=== PATIENT | female | born 1950 | race Caucasian/White ===

== ENCOUNTER 2024-06-10 12:27 | Emergency (ER) | payer MEDICARE ==
[~2024-06-10] VITALS: Ht 157.5 cm; Wt 58.0 kg
[2024-06-10] VITALS (16 sets, daily range): BP systolic 123–151; BP diastolic 63–127
[2024-06-10] MEDS ORDERED: LEVOTHYROXIN125 MCG PO (12:40)
[2024-06-10] MEDS ORDERED: ELIQUIS5 MG PO (12:40)
[2024-06-10] MEDS ORDERED: IPRATROPIUM-Albuterol 0.5MG-2.5MG/3 ML NEB ONE (12:45)
[2024-06-10 13:35] LABS: BASO% 0.5 % (0-3); EOS% 6.2 % (0-8); HEMATOCRIT 35.6 % (37.0-47.0); HEMOGLOBIN 11.7 g/dl (12.0-16.0); IMMATURE GRANULOCYTES 0.2 % (0.0-5.0); LYMPH% 39.2 % (15-41); MEAN CELL VOLUME 94.7 fL CALC (80.0-100.0); MEAN CORPUSCULAR HGB 31.1 pG CALC (26.0-32.0); MEAN CORPUSCULAR HGB CONC 32.9 g/dL CAL (32.0-36.0); MONO% 6.9 % (2-13); NEUT# 2.73 thou/uL (2.00-7.15); RED BLOOD COUNT 3.76 mill/uL (4.20-5.60); RED CELL DISTRI WIDTH 14.1 % (11.5-15.5)
[2024-06-10 13:49] LABS: ALBUMIN 3.8 g/dL (3.2-5.0); ALKALINE PHOSPHATASE 77 u/l (38-126); ANION GAP 9 (6-22 (CALC)); BILIRUBIN, TOTAL 0.7 mg/dL (0.02-1.3); BUN 20 mg/dL (8-23); BUN/CREATININE RATIO 18 (12-20 (CALC)); CARBON DIOXIDE 21 mmol/l (22-30); CHLORIDE 114 mmol/l (95-108); CREATININE 1.1 mg/dL (0.5-1.0); ESTIMATED GFR 53 ML/MIN (>=90 (CALC)); POTASSIUM 4.3 mmol/l (3.5-5.1); SGOT/AST 34 u/l (9-36); SODIUM 140 mmol/l (137-146); TOTAL PROTEIN 6.9 g/dL (6.3-8.2)
[2024-06-10] MEDS ORDERED: AMOX/K CLAV875 M1 PO (16:01)
== END 2024-06-10 16:10 | disposition home or self-care (01) ==
LOC: ED 12:27
PROVIDERS: Clinical Nurse Specialist Emergency
DX: U07.1 COVID-19 (principal); J12.82 Pneumonia due to coronavirus disease 2019; J44.0 Chronic obstructive pulmonary disease with (acute) lower respiratory infection; I10 Essential (primary) hypertension; F17.200 Nicotine dependence, unspecified, uncomplicated

== ENCOUNTER 2024-06-12 13:58 | Observation (INO) | payer MEDICARE ==
[~2024-06-12] VITALS: Ht 157.5 cm; Wt 62.0 kg
[2024-06-12] VITALS (15 sets, daily range): BP systolic 144–218; BP diastolic 66–116
[~2024-06-12 13:58] MED LIST: AMOX/K CLAV875 M1 PO; ELIQUIS5 MG PO; LEVOTHYROXIN125 MCG PO
[2024-06-12] MEDS ORDERED: [UNRECOGNIZED DRUG - OTHER] PO (14:38)
[2024-06-12] MEDS ORDERED: AMLODIPINE PO (14:38)
[2024-06-12] MEDS ORDERED: CITALOPRAM40 MG PO (14:39)
[2024-06-12] MEDS ORDERED: VENLAFAXINE75 M2 PO (14:39)
[2024-06-12] MEDS ORDERED: VENTOLIN HFA108 MCG IN (14:40)
[2024-06-12] MEDS ORDERED: BREZTRI AEROSPH1 AER IN (14:40)
[2024-06-12] MEDS ORDERED: IPRATROPIUM-Albuterol 0.5MG-2.5MG/3 ML NEB ONE ×3 (17:40)
[2024-06-12] MEDS ORDERED: methylPREDNISolone SODIUM SUCC 125 MG/2 ML SDV IV ONE (17:40)
[2024-06-12] MEDS ORDERED: ONDANSETRON HCl 4 MG/2 ML SDV IV ONE (17:45)
[2024-06-12] MEDS ORDERED: ALBUTEROL SULFATE 8 GM INH IN ONE (17:45)
[2024-06-12] MEDS ORDERED: SODIUM CHLORIDE 0.9% 1,000 ML IV ONE (17:45)
[2024-06-12 18:10] LABS: BASO% 0.6 % (0-3); HEMATOCRIT 38.6 % (37.0-47.0); HEMOGLOBIN 12.7 g/dl (12.0-16.0); IMMATURE GRANULOCYTES 0.1 % (0.0-5.0); LYMPH% 33.7 % (15-41); MEAN CELL VOLUME 95.3 fL CALC (80.0-100.0); MEAN CORPUSCULAR HGB 31.4 pG CALC (26.0-32.0); MEAN CORPUSCULAR HGB CONC 32.9 g/dL CAL (32.0-36.0); NEUT# 4.53 thou/uL (2.00-7.15); NEUT% 56.6 % (42-76); RED BLOOD COUNT 4.05 mill/uL (4.20-5.60); RED CELL DISTRI WIDTH 13.6 % (11.5-15.5)
[2024-06-12 18:22] LABS: ALBUMIN 4.1 g/dL (3.2-5.0); ALKALINE PHOSPHATASE 98 u/l (38-126); ANION GAP 11 (6-22 (CALC)); BILIRUBIN, TOTAL 0.9 mg/dL (0.02-1.3); BUN 18 mg/dL (8-23); BUN/CREATININE RATIO 21 (12-20 (CALC)); CARBON DIOXIDE 22 mmol/l (22-30); CHLORIDE 112 mmol/l (95-108); CREATININE 0.9 mg/dL (0.5-1.0); ESTIMATED GFR 68 ML/MIN (>=90 (CALC)); POTASSIUM 4.2 mmol/l (3.5-5.1); SGOT/AST 32 u/l (9-36); SODIUM 140 mmol/l (137-146); TOTAL PROTEIN 7.4 g/dL (6.3-8.2)
[2024-06-12] MEDS ORDERED: AZITHROMYCIN 500 MG in SODIUM CHLORIDE 0.9% 500 ML IV ONE (18:40)
[2024-06-12] MEDS ORDERED: Zaleplon 5 MG/CAP PO PRN ×2 (19:20→19:40)
[2024-06-12] MEDS ORDERED: MAGNESIUM HYDROXIDE 30 ML UDC PO PRN (19:20)
[2024-06-12] MEDS ORDERED: ACETAMINOPHEN 325 MG/TAB PO PRN (19:20)
[2024-06-12] MEDS ORDERED: guaiFENesin 200 MG/10 ML UDC PO PRN (19:25)
[2024-06-12] MEDS ORDERED: LOSARTAN Potassium 25 MG/TAB PO SCH (19:25)
[2024-06-12] MEDS ORDERED: ALBUTEROL SULFATE 2.5 MG VIAL NEB SCH (19:25)
[2024-06-12] MEDS ORDERED: hydrALAZINE HCL 20 MG/ML VIAL(1 ML) IV ONE (19:30)
[2024-06-12] MEDS ORDERED: hydrALAZINE HCL 20 MG/ML VIAL(1 ML) IV PRN (19:30)
[2024-06-12] MEDS ORDERED: ONDANSETRON HCl 4 MG/2 ML SDV IV PRN (19:35)
[2024-06-12] MEDS ORDERED: APIXABAN BASE 5 MG TAB PO SCH (21:00)
[2024-06-12] MEDS ORDERED: methylPREDNISolone Sod Succ 40 MG/ML SDV IV SCH (21:00)
[2024-06-12] MEDS ORDERED: ALBUTEROL SULFATE 8 GM INH IN SCH (23:00)
[2024-06-13 00:59] VITALS: BP 115/70
[2024-06-13 04:50] LABS: BASO% 0.3 % (0-3); HEMATOCRIT 35.6 % (37.0-47.0); HEMOGLOBIN 11.9 g/dl (12.0-16.0); IMMATURE GRANULOCYTES 0.2 % (0.0-5.0); LYMPH% 12.7 % (15-41); MEAN CELL VOLUME 94.2 fL CALC (80.0-100.0); MEAN CORPUSCULAR HGB 31.5 pG CALC (26.0-32.0); MEAN CORPUSCULAR HGB CONC 33.4 g/dL CAL (32.0-36.0); MONO% 0.8 % (2-13); NEUT# 5.57 thou/uL (2.00-7.15); RED BLOOD COUNT 3.78 mill/uL (4.20-5.60); RED CELL DISTRI WIDTH 13.6 % (11.5-15.5)
[2024-06-13 05:21] LABS: ALBUMIN 3.5 g/dL (3.2-5.0); CREATININE 0.9 mg/dL (0.5-1.0); POTASSIUM 3.9 mmol/l (3.5-5.1); TOTAL PROTEIN 6.4 g/dL (6.3-8.2)
[2024-06-13 05:30] LABS: BILIRUBIN, TOTAL 0.5 mg/dL (0.02-1.3)
[2024-06-13 05:36] VITALS: BP 145/62
[2024-06-13] MEDS ORDERED: LEVOTHYROXINE SODIUM 125 MCG/TAB PO SCH ×2 (06:00)
[2024-06-13 06:12] VITALS: BP 161/77
[2024-06-13] MEDS ORDERED: amLODIPine BESYLATE 5 MG/TAB PO SCH (09:00)
[2024-06-13] MEDS ORDERED: VENLAFAXINE HYDROCHLORIDE 75 MG/CAP PO SCH ×2 (09:00)
[2024-06-13] MEDS ORDERED: CITALOPRAM 40 MG PO SCH (09:00)
[2024-06-13] MEDS ORDERED: LOSARTAN Potassium 25 MG/TAB PO SCH (09:00)
[2024-06-13] MEDS ORDERED: ESCITALOPRAM 10 MG/TAB PO SCH (09:00)
[2024-06-13] MEDS ORDERED: PROMETHAZINE HCL 25 MG/TAB PO PRN (15:25)
[2024-06-13] MEDS ORDERED: SODIUM CHLORIDE 0.9% 1,000 ML IV PRN (15:25)
[2024-06-13 15:48] VITALS: BP 145/63
[2024-06-13 17:44] VITALS: BP 145/63
[2024-06-13] MEDS ORDERED: AZITHROMYCIN 500 MG in SODIUM CHLORIDE 0.9% 250 ML IV SCH (18:00)
[2024-06-13 20:18] VITALS: BP 124/56
[2024-06-14 05:11] VITALS: BP 135/61
[2024-06-14 05:25] LABS: BASO% 0.1 % (0-3); HEMATOCRIT 31.6 % (37.0-47.0); HEMOGLOBIN 10.5 g/dl (12.0-16.0); IMMATURE GRANULOCYTES 0.2 % (0.0-5.0); LYMPH% 7.5 % (15-41); MEAN CELL VOLUME 94.6 fL CALC (80.0-100.0); MEAN CORPUSCULAR HGB 31.4 pG CALC (26.0-32.0); MEAN CORPUSCULAR HGB CONC 33.2 g/dL CAL (32.0-36.0); NEUT# 16.98 thou/uL (2.00-7.15); NEUT% 90.2 % (42-76); RED BLOOD COUNT 3.34 mill/uL (4.20-5.60); RED CELL DISTRI WIDTH 13.7 % (11.5-15.5)
[2024-06-14 05:26] LABS: ALBUMIN 3.2 g/dL (3.2-5.0); BILIRUBIN, TOTAL 0.4 mg/dL (0.02-1.3); POTASSIUM 4.4 mmol/l (3.5-5.1); TOTAL PROTEIN 5.7 g/dL (6.3-8.2)
[2024-06-14 07:38] VITALS: BP 131/61
[2024-06-14] MEDS ORDERED: AZITHROMYCIN500 MG PO (10:47)
[2024-06-14] MEDS ORDERED: PREDNISONE10 MG PO (10:48)
[2024-06-14 11:20] VITALS: BP 129/54
== END 2024-06-14 14:27 | disposition home or self-care (01) ==
LOC: ED 13:58 → ED-I 19:05 → ED 19:05 → ED-I 19:12 → ED 19:23 → MS2 19:23
PROVIDERS: Nurse Practitioner; Nurse Practitioner Family; ADMIT Internal Medicine; ATTEND Internal Medicine
DX: U07.1 COVID-19 (principal); J44.1 Chronic obstructive pulmonary disease with (acute) exacerbation; R11.2 Nausea with vomiting, unspecified; I10 Essential (primary) hypertension; I25.10 Atherosclerotic heart disease of native coronary artery without angina pectoris; E78.5 Hyperlipidemia, unspecified; Z95.5 Presence of coronary angioplasty implant and graft; Z86.73 Personal history of transient ischemic attack (TIA), and cerebral infarction without residual deficits; Z85.3 Personal history of malignant neoplasm of breast; Z86.718 Personal history of other venous thrombosis and embolism; Z72.0 Tobacco use; Z79.01 Long term (current) use of anticoagulants
CPT/HCPCS: J0360; J0456; J0696; J2405